=== PATIENT | male | born 1970 | race Hispanic/Latino ===

== ENCOUNTER 2024-02-22 17:04 | Emergency (ER) | payer SELFPAY ==
[~2024-02-22] VITALS: Ht 167.6 cm; Wt 81.6 kg
[2024-02-22 17:07] VITALS: TEMP 98.1
[2024-02-22 17:21] LABS: BASOPHILS % 0.5 % (0.0-1.0); EOSINOPHILS # (AUTO) 0.2 (0.0-0.4); EOSINOPHILS % 2.2 % (0.0-6.0); HEMATOCRIT 48.7 % (38.2-49.6); LYMPHOCYTES # (AUTO) 2.4 (1.0-3.2); LYMPHOCYTES % 28.2 % (18.0-39.1); MEAN CORPUSCULAR HEMOGLOBIN 34.6 pg (28-32); MEAN CORPUSCULAR HGB CONC 34.9 g/dL (31-35); MONOCYTES # (AUTO) 0.6 (0.2-0.8); MONOCYTES % 6.4 % (4.4-11.3); NEUTROPHILS # (AUTO) 5.3 (2.1-6.9); NEUTROPHILS % 62.2 % (38.7-80.0); PLATELET COUNT 343 x10e3/uL (140-360); RED BLOOD COUNT 4.92 x10e6/uL (4.3-5.7); WHITE BLOOD COUNT 8.56 x10e3/uL (4.8-10.8)
[2024-02-22] MEDS: SODIUM CHLORIDE 0.9% 1000ML 1,000 ML IV SCH (17:31)
[2024-02-22] MEDS: ONDANSETRON HCL INJ 2MG/ML 2ML 2 MG/ML VIAL IV STA (17:31)
[2024-02-22 17:41] LABS: ALBUMIN 4.4 g/dL (3.5-5.0); ALBUMIN/GLOBULIN RATIO 1.5 (0.8-2.0); ANION GAP 14.8 mmol/L (8-16); BILIRUBIN,TOTAL 0.7 mg/dL (0.2-1.2); CALCIUM 9.7 mg/dL (8.4-10.2); CREATININE, SERUM 0.85 mg/dL (0.72-1.25); POTASSIUM 3.8 mmol/L (3.5-5.1); TOTAL PROTEIN 7.4 g/dL (6.5-8.1)
[2024-02-22] MEDS ORDERED: TRANSDERM-SCOP1 EACH TD (18:38)
[2024-02-22] MEDS ORDERED: ONDANSETRON ODT4 MG SL (18:38)
[2024-02-22 18:45] VITALS: PULSE 66; RESP 16
[2024-02-22 19:05] VITALS: BP 125/89; PULSE 66; RESP 16; O2SAT 99
== END 2024-02-22 19:00 | disposition home or self-care (01) ==
LOC: ER 17:12
DX: R42 Dizziness and giddiness (principal); I10 Essential (primary) hypertension; E78.5 Hyperlipidemia, unspecified
CPT/HCPCS: 36415; 70450; 71045; 80053; 84484; 85025; 93005; 99284; J2405; J7030